=== PATIENT | male | born 1985 | race Caucasian/White ===

== ENCOUNTER → 2016-09-24 | Day surgery (SDC) | payer OTHER ==
--- NOTE | 2016-09-21 12:40 | History & Physical Pre-Op ---
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 The patient has undergone an extended course of conservative care, including shoe gear and activity modification, rest, immobilization and courses of NSAIDs. None of this is yielded him any significant relief. The patient presents today for preoperative surgical consultation. Allergies/Medications Allergies: Coded Allergies: No Known Allergies (08/23/16) Past History Surgical History Pertinent Surgical History: cholecystectomy Review of Systems Review of Systems: Unremarkable except for that noted in history of present illness Exam & Diagnostic Data Physical Exam: Lungs clear bilaterally. Heart sounds rate and rhythm regular. Lower extremity physical exam demonstrates intact pedal pulses bilaterally. Pulses dorsalis pedis and posterior tibial arteries are palpable bilaterally. Patient without any sensory motor deficits. Deep tendon reflexes grossly intact. Patient noted to have same and pain with palpation to the posterior aspect of the right heel at the level of the insertion of the Achilles tendon. Assessment/Plan Assessment/Plan: Painful Hay's right heel. A lengthy discussion reviewing both surgical and conservative options was held the patient at bedside and the patient elects to go forward with surgery despite the risks. As Ranked By This Provider Problem List: 1. Calcaneal spur of right foot Attending MD Review Statement Attending Statement Attending MD Statement: examined this patient
[~2016-09-24] VITALS: Ht 175.3 cm; Wt 113.4 kg
--- NOTE | 2016-09-24 16:48 | Operative Report ---
Operative/Inv Procedure Report Surgery Date: 09/24/16 Name of Procedure: 1 Hay's resection right heel 2 Achilles tendon repair right 3 intraoperative administration of ankle block anesthesia Pre-Operative Diagnosis: 1 painful Hay's deformity right heel Post-Operative Diagnosis: The same Estimated Blood Loss: scant Surgeon/Choir Teacher: ZARA PAYAN DPM, Dr. Anesthesia: moderate sedation, block Operative/Procedure Note Note: After obtaining informed consent the patient was brought to the operating room and positioned on the operating table in the prone position. The patient was then securely fastened to the operating table utilizing safety belt. After administration of IV sedation, 10 mL of 0.5% Marcaine plain was infiltrated about the patient's right ankle. A well-padded thigh tourniquet was placed about the patient's right upper thigh. 2 g of Ancef were delivered intravenously times one dose. The right lower extremity was then scrubbed prepped and draped in usual aseptic manner. Right lower extremity was elevated to examine to limb, which point the thigh tourniquet was inflated 250 mmHg. Attention directed posterior aspect of the right heel where an 8 cm curvilinear incision was marked out along the medial margin of the distal Achilles tendon and extending transversely to the inferior margin of the calcaneus. The skin was incised with 15 blade and deepened subtenons tissues. All vital neurovascular structures were identified protected. A full-thickness flap was then elevated off the posterior aspect of the Achilles tendon. There was significant tendinosis identified centrally and the posterior margin of the distal Achilles. This was debrided sharply and passed from the operative field. The Achilles tendon was then elevated off its insertion posterior aspect calcaneus. Sagittal bone saw was then utilized to resect the hallux deformity. Any sharp cortical margins were then rongeured and the wound was irrigated cuff Svensson normal sterile saline. The Achilles tendon was then retested the posterior aspect of the calcaneus utilizing the Arthrex Achilles speed bridge system. The Achilles was noted to be well approximated at its insertion site. The wound was then again irrigated cuff Svensson normal sterile saline. Deep tissues reapproximated with 3-0 Vicryl and the subtenons tissues reapproximated 4-0 Vicryl. The skin edges coapted with 3-0 nylon. Incision was dressed with Xeroform 4 x 4's Kerlix and an Ish wrap. A well-padded Marquez compressive dressing and posterior splint by the patient's right lower extremity. Patient is noted tolerate both procedure and anesthesia well and the patient was transported from the operating room to recovery by sent stable best assess intact all digits right foot.
== END ==
LOC: STS 09-10 07:00
DX: M21.6X1 Other acquired deformities of right foot (principal); M77.31 Calcaneal spur, right foot; M67.873 Other specified disorders of tendon, right ankle and foot
CPT/HCPCS: J0690; J2001; J2250